=== PATIENT | male | born 1985 | race Caucasian/White ===

== ENCOUNTER 2025-03-19 11:03 | Emergency (ER) | payer OTHER ==
[~2025-03-19] VITALS: Ht 177.8 cm; Wt 86.2 kg
[2025-03-19] MEDS ORDERED: Midazolam HCL 1 MG/ML 5MLVIAL IV ONE ×2 (11:50→15:00)
[2025-03-19 12:08] LABS: Source, Urine Clean Catch
[2025-03-19 12:09] LABS: BASOPHILS ABSOLUTE AUTO 0.05 K/mm3 (0.00-0.23); BASOPHILS PERCENT AUTO 0 % (0-2); EOSINOPHILS ABSOLUTE AUTO 0.06 K/mm3 (0.00-0.68); EOSINOPHILS PERCENT AUTO 0 % (0-6); Hematocrit 44.1 % (37.0-53.0); Hemoglobin 15.2 g/dL (13.5-17.5); IMMATURE GRAN ABSOLUTE AUTO 0.04 K/mm3 (0.00-0.10); IMMATURE GRAN PERCENT AUTO 0 % (0-1); LYMPHOCYTES ABSOLUTE AUTO 1.90 K/mm3 (0.84-5.20); LYMPHOCYTES PERCENT AUTO 14 % (21-46); MONOCYTES ABSOLUTE AUTO 0.80 K/mm3 (0.16-1.47); MONOCYTES PERCENT AUTO 6 % (4-13); Mean Corpuscular HGB Conc 34.5 g/dL (31.5-36.5); Mean Corpuscular Volume 90 fL (80-100); NEUTROPHILS ABSOLUTE AUTO 11.21 K/mm3 (1.96-9.15); NEUTROPHILS PERCENT AUTO 80 % (41-73); NRBC ABSOLUTE 0.00 K/mm3 (0.00-0.02); NRBC Auto 0.0 /100 WBC (0.0-0.2); Platelet Count 289 K/mm3 (150-400); RDW Coefficient Variation 14.1 % (11.7-14.2); RDW Standard Deviation 46.6 fL (35.1-46.3)
[2025-03-19 12:19] LABS: Color, Urine Yellow (P-Yellow); Glucose Qualitative, Urine Neg (Neg); Ketones, Urine 3+ (Neg); Leukocyte Esterase, Urine Neg (Neg); Protein, Urine 3+ (Neg); Specific Gravity, Urine 1.025 (1.003-1.022); Urobilinogen, Urine 1+ (Normal)
[2025-03-19 12:41] LABS: Acetaminophen, Random 3.5 ug/mL (10.0-30.0); Alanine Aminotransfer (ALT/SGP 28 U/L (12-78); Albumin, Blood 4.6 g/dL (3.4-5.0); Albumin/Globulin Ratio 1.6 (0.8-1.8); Anion Gap 7 mmol/L (3-11); Aspartate Aminotrans (AST/SGOT 19 U/L (12-37); Bilirubin, Total 0.7 mg/dL (0.1-1.0); Blood Urea Nitrogen 11 mg/dL (8-24); CO2, Blood 25 mmol/L (21-32); Calcium, Blood 9.1 mg/dL (8.5-10.1); Chloride, Blood 108 mmol/L (98-108); Creatinine, Blood 0.91 mg/dL (0.60-1.20); Ethanol (Alcohol), Blood, Med <3 mg/dL; Globulin, Blood 2.9 g/dL (2.2-4.0); Glucose, Blood 106 mg/dL (70-99); Potassium, Blood 3.2 mmol/L (3.5-5.5); Salicylate 18.7 mg/dL (2.8-20.0); Sodium, Blood 137 mmol/L (136-145); Total Protein, Blood 7.5 g/dL (6.4-8.2)
[2025-03-19 12:43] LABS: U Benzodiazapine Screen DETECTED
[2025-03-19 12:44] LABS: U Amphetamine Screen Not Detected; U Barbituate Screen DETECTED; U Buprenorphine Screen Not Detected; U Cannabinoids Screen Not Detected; U Cocaine Screen Not Detected; U Methadone Screen Not Detected; U Methamphetamine Screen Not Detected; U Opiates Screen Not Detected; U Oxycodone Screen Not Detected; U Phencyclidine Screen Not Detected
[2025-03-19 12:48] LABS: Bilirubin, Urine 1+ (Neg)
[2025-03-19 12:53] LABS: Red Blood Cells, Urine 0-2 /hpf (0-2)
[2025-03-19] MEDS ORDERED: Ketorolac Tromethamine 15mg Vial IV ONE (15:00)
[2025-03-19 16:26] LABS: Acetaminophen, Random <2.0 ug/mL (10.0-30.0); Salicylate 13.8 mg/dL (2.8-20.0)
== END 2025-03-19 21:15 | disposition other institution (70) ==
LOC: ER 11:03
PROVIDERS: Physician Assistant
DX: R45.851 Suicidal ideations (principal); R45.850 Homicidal ideations
CPT/HCPCS: 70450; 71046; 80053; 80320; 81001; 84484; 85025; 93005; 93010; 96374; 96375; 96376; 99285-25; G0480; J1885; J2250

== ENCOUNTER 2025-03-19 16:07 | Inpatient (IN) | payer OTHER ==
[~2025-03-19] VITALS: Ht 175.3 cm; Wt 83.7 kg
[2025-03-19] MEDS ORDERED: Polyethylene Glycol 3350 17 gm PO PRN (18:00)
[2025-03-19] MEDS ORDERED: Ondansetron 4 MG SoluTab MM PRN (18:00)
[2025-03-19] MEDS ORDERED: DiphenhydrAMINE HCl 50 MG/ML 1ML Vial IM PRN (18:05)
[2025-03-19] MEDS ORDERED: Haloperidol Lactate Inj. 5 MG/ML Injection IM PRN (18:05)
[2025-03-19] MEDS ORDERED: Aluminum Hydroxide 320MG/5ML 473 ML PO PRN (18:05)
[2025-03-19 22:03] VITALS: BP 110/72
[2025-03-19 22:11] VITALS: BP 110/72
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
--- NOTE | 2025-03-20 04:25 | NUR ---
SHIFT SUMMARY: PLEASE READ PATIENT ADMISSION NOTE. PATIENT WENT TO HIS NEW ROOM AND WENT TO BED, WHERE HE WAS NOTED TO BE RESTING QUIETLY WITH EYES CLOSED AND RESPIRATIONS CONFIRMED FOR THE REMAINDER OF THE SHIFT. NO S/SX SI OR HI NOTED THIS SHIFT. CONTINUING TO MONITOR FOR SAFETY WITH Q15 MINUTE CHECKS.
[2025-03-20 07:12] LABS: CHOL/HDL RATIO 3.7; Cholesterol 204 mg/dL (50-200); HDL Cholesterol 55 mg/dL (>39); LDL/HDL RATIO 2.4; Low Density Lipoprotein Chol 131 mg/dL (0-110); Triglycerides 92 mg/dL (30-140); Very Low Density Lipoprot Chol 18 mg/dL (6-28)
[2025-03-20] MEDS ORDERED: Multivitamins 1 Tab PO SCH (09:00)
[2025-03-20 09:05] VITALS: BP 126/72
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
[2025-03-20 19:13] VITALS: BP 129/77
--- NOTE | 2025-03-21 04:18 | NUR ---
SHIFT SUMMARY: PATIENT WAS COMING OUT OF THE DINING ROOM AT THE BEGINNING OF THE SHIFT. HE SPENT SOME TIME IN HIS ROOM READING, AND SOME TIME IN THE DAY ROOM. HE STATED THAT HE IS "ANGRY WITH MYSELF THAT THINGS HAVEN'T GOTTEN BETTER". HE WAS ADVISED TO BE PATIENT WITH HIMSELF AND GIVE HIMSELF AND STAFF/DR TIME TO FIGURE OUT WHAT WORKS BEST FOR HIM, TO WHICH HE AGREED. HE ANSWERED RN NEONATAL QUESTIONS IN A LOGICAL AND LINEAR MANNER. HE DENIED SUICIDAL IDEATION ("I THINK ABOUT IT, BUT DON'T REALLY WANT TO DO IT RIGHT NOW. I'M WILLING TO SEE HOW THIS WORKS OUT"), THOUGHTS OF SELF HARMING AND A/V/T HALLUCINATIONS. HE PARTICIPATED IN SNACK AND WRAP UP GROUP AT 2030, AND WAS COMPLIANT WITH EVENING MEDICATIONS. HE WENT TO HIS ROOM AFTER SNACK, AND WAS NOTED TO BE RESTING QUIETLY WITH EYES CLOSED AND RESPIRATIONS CONFIRMED FOR THE REMAINDER OF THE SHIFT. CONTINUING TO MONITOR FOR SAFETY WITH Q15 MINUTE CHECKS.
[2025-03-21 08:55] VITALS: BP 133/86
--- NOTE | 2025-03-21 17:54 | NUR ---
SHIFT SUMMARY PT [id number]. COOPERATIVE WITH CARE, BUT USUALLY HOSTILE WITH TONE OF VOICE AND BODY POSTURING DURING COMMUNICATIONS. PT REPORTS FEELING PISSED OFF, ANGRY AND "YOU DON'T WANT TO KNOW WHAT ELSE I'M THINKING" WHEN ASKED ABOUT HIS MOOD THIS AM. UPON FURTHER QUESTIONING, PT DID ENDORSE SI AND HI WITH NO PARTICULAR DETAILS. HE WENT ON TO EXPLAIN THAT HE FEELS NO ISHAAN ANYMORE, JUST ANGER AND AGITATION. AFTER MEDICATION EDUCATION, THE PATIENT AGREED TO A PRN FOR AGITATION. HE MADE IT CLEAR THAT HE DOES NOT WANT "MEDS FUNNELED DOWN HIS THROAT" AND ONLY WILL TAKE MEDS THAT HE ASKS FOR. THERAPEUTIC COMMUNICATION PROVIDED AND REASSURANCE GIVEN TO PATIENT THAT HE HAS THE RIGHT WHETHER OR NOT TO TAKE MEDICATIONS. PT LATER REPORTED THAT THE PRN [id number] DID NOT HELP, BUT ACTUALLY MADE HIM FEEL WORSE. PT HAS OTHERWISE BEEN ATTENDING GROUPS AND KEEPING TO HIMSELF, BUT BEING RESPECTFUL OF PEERS/STAFF. HE IS CURRENTLY SITTING IN GROUP ROOM WATCHING TV. DENIES ANY NEEDS AT THIS TIME.
[2025-03-21] MEDS ORDERED: BIKTARVY 30-121 EACH PO (20:11)
[2025-03-21 21:01] VITALS: BP 112/75
--- NOTE | 2025-03-21 22:46 | NUR ---
ASSUMED PT CARE @1900. PT IS AA&O TO PERSON, PLACE AND SITUATION. SPEECH AND EYE CONTACT IS APPROPRIATE. HE REPORTS MOOD ANGRY, AFFECT IS SOMEWHAT CONSTRICTED. HE REORTS THAT PRN [id number] "DID NOTHING TO HELP" HIS MOOD. HE DID TAKE A NAP, WAS CALM WHILE IN TV ROOM, INTERACTED WELL WITH PEERS, ATE DINNER AND SNACK WITHOUT ISSUE. HE WAS COMPLIANT WITH NOC MEDICATIONS. HE REPORTS THAT HE DECLINED REMERON LAST NIGHT ONLY ACCEPTING MELATONIN. HE STATES THAT HE WAS FRUSTRATED D/T RN ATTEMPTING TO GIVE HIM SEVERAL PILLS AT ONE TIME THAT HE DID NOT REQUEST. HE ENDORSES SI AND HI. HE STATES THAT HE FEELS SAFE HERE "FOR NOW" PT IS NOW IN BED RESTING EYES CLOSED. WILL CONTINUE PLAN OF CARE
--- NOTE | 2025-03-22 04:33 | NUR ---
SHIFT SUMMARY Patient is alert and oriented times four. Resting in bed for most of the shift, He did get OOB for snack at 2030 and then back to bed. He has been sleeping throughout the shift after that time. Per evening RN, prior to sleep, patient was still endorsing SI and HI no AVTH. Will continue close observation every 15 minutes for safety and comfort.
[2025-03-22 10:52] VITALS: BP 141/95
[2025-03-22] MEDS ORDERED: MIRT15 PO (14:46)
--- NOTE | 2025-03-22 17:14 | NUR ---
SHIFT SUMMARY PT STAYED IN BED THROUGH HIS BREAKFAST MEAL AND REFUSED TO ANSWER QUESTIONS TO THIS RN. HE DID PARTICIPATE IN GROUPS. HE WAS DEMANDING TO BE D/C'D AND WAS CONCERNED ABOUT HIS BELONGINGS HE HAD LEFT AT HIS CAMP. HOWEVER WHILE PLANNING AND PREPARING THE D/C, THE PT WAS NOT ABLE TO CONTRACT FOR HIS OWN SAFETY. WHEN ASKED IF HE WOULD SEEK HELP IMMEDIATELY OR GO TO THE ER IF HE WAS FEELING SI/HI HE STATES "I JUST DON'T KNOW THAT I CAN DO THAT." HIS SAFETY PLAN WAS DONE WITH BARRY GROSS. DR. MESA WAS NOTIFIED OF PT NOT BEING ABLE TO CONTRACT FOR SAFETY. JUDY RN/DIRECTOR SPOKE WITH THE PT ALONG WITH THIS RN, AND HE DECIDED TO STAY IN THE UNIT WHERE HE IS SAFE. HE ALSO EXPRESSED A DESIRE TO START ON A ONLINE MARKETER MEDICATION TO HELP WITH HIS MOOD AND DEPRESSION. HE STATES HE RECALLS BEING ON WELLBUTRIN AND DEPAKOTE BEFORE, BUT NOT TOGETHER. HE ALSO STATES HE HAS BEEN DIAGNOSED WITH BIPOLAR DISORDER IN THE PAST. AFTER CONVERSING WITH THE PT HE IS STILL SLIGHTLY ANXIOUS R/T MEDS AND WHEN D/C WILL BE, BUT HE APPEARS MORE COMFORTABLE IN THE UNIT AND LESS ANXIOUS. HE AGREES TO STAY VOLUNTARY AT THIS TIME.
[2025-03-22 20:39] VITALS: BP 115/82
--- NOTE | 2025-03-23 04:19 | NUR ---
SHIFT SUMMARY PATIENT IN [place] AT BEGINNING OF SHIFT, BUT KEEPING MOSTLY TO HIMSELF. GOING TO SNACK AND THEN GOING TO BED AFTER HS MEDICATIONS. VERBALIZED THAT HE IS FEELING "MELANCHOLY" DENIES SI, HI OR AVH. VERBALIZED THAT HE HAS BEEN THINKING ABOUT STAYING FOR TREATMENT AND NOT LEAVING TOMORROW. VERBALIZED "THAT IS ALL I HAVE" POINTING TO HIS CUBBY IN HIS ROOM, THEN SAYING "THINGS CAN BE REPLACED, BUT I CAN'T REPLACE ME". PATIENT APPEARS TO BE SLEEPING WELL T/O NIGHT, RESP EVEN AND UNLABORED. CONTINUE TO MONITOR Q15MIN
[2025-03-23 09:20] VITALS: BP 136/82
--- NOTE | 2025-03-23 13:45 | NUR ---
DISCHARGE SUMMARY D/C INSTRUCTIONS AND INFORMATION PACKET EXPLAINED TO PT, AND ALL QUESTIONS ANSWERED. PT SIGNED ACKNOWLEDGEMENT FORM. HE WAS PROVIDED WITH SHOES AND SOCKS AND GIVEN HIS BELONGINGS FROM HIS TOTE. PT DRESSED SELF AND GIVEN ALL OF FORMS AND INFO PACKET. PT PROVIDED WITH A SACK OF FOOD FOR AN EXTRA MEAL AFTER D/C. HE WAS PROVIDED WITH TRANSPORTATION TO [facility] BY [facility]. HE HAS A F/U ARRANGED FOR TOMORROW FOR DISCHARGE F/U AND PT STATES HE UNDERSTANDS TO GO TO [facility] AT [facility] AND MEDS WERE FAXED TO [place].
== END 2025-03-23 13:10 | disposition home or self-care (01) | DRG 882 ==
LOC: BHU 16:07
PROVIDERS: ADMIT Psychiatry & Neurology Psychiatry
DX: F43.25 Adjustment disorder with mixed disturbance of emotions and conduct (principal); Z59.01 Sheltered homelessness; Z79.899 Other long term (current) drug therapy
CPT/HCPCS: 36415; 80061; 83036; 86592; A9270